=== PATIENT | female | born 1950 | race Caucasian/White ===

== ENCOUNTER → 2016-11-18 07:33 | Day surgery (SDC) | payer MEDICARE, BC ==
[~2016-11-18] VITALS: Ht 154.9 cm; Wt 84.5 kg
--- NOTE | ~2016-11-18 | OP ---
PATIENT NAME: MALINDA PATEL MEDICAL RECORD: [id number] :50 LOCATION:D[facility] ADMISSION DATE: SURGEON: BISMARK HOROWITZ DO DATE OF OPERATION: 11/18/2016 PROCEDURE: EGD with biopsies. INDICATIONS FOR PROCEDURE: Heartburn and occult blood in stools. SCOPE: Olympus video gastroscope. MEDICATIONS: Propofol 175 mg IV per anesthesia. ESTIMATED BLOOD LOSS: Minimal. COMPLICATIONS: None. FINDINGS: Informed consent was given. The patient was made comfortable with the above medication. After reaching an adequate level of sedation by slow IV push, the patient was placed on her left side. The endoscope was then advanced under direct visualization through the mouth to the second portion of the duodenum. The upper, middle, and distal thirds of the esophagus appeared normal. At the GE junction, there was some very mild LA class A, reflux induced esophagitis. The endoscope was advanced into the stomach and retroflexed to view the cardia where a diminutive sliding hiatal hernia was present. There were multiple benign-appearing fundic gland type polyps present in the fundus and body of the stomach. A single polyp was removed confirm this diagnosis. The endoscope was advanced down to the antrum and prepyloric region, which appeared normal. Random biopsies were taken from this area to submit for histology and to rule out H. pylori. The endoscope was advanced into the duodenum where the bulb and second portion of the duodenum appeared normal. The scope was then withdrawn from the patient. The patient tolerated the procedure well and there were no complications. IMPRESSIONS: 1. Reflux esophagitis, grade A. 2. Diminutive sliding hiatal hernia. 3. Benign appearing fundic gland type gastric polyps. PLAN AND RECOMMENDATIONS: 1. Discharge home when recovery parameters are met. 2. Continue current diet. 3. Continue current medications, including omeprazole 20 mg daily for heartburn. 4. Consider colonoscopy regarding the Hemoccult positive stools. TRANSINT:[id number] Voice Confirmation ID: [id number] DOCUMENT ID: [id number] OPERATIVE REPORT [id number] MALINDA PATELBISMARK NAJERA DO CC: [id number] DICTATION DATE: 11/18/16 0845 BLOW PIT HELPER: 11/18/16 1730 [id number] [place] [address]
[~2016-11-18 07:33] MED LIST: ACETAMINOPHEN500 M1 PO; COUMADIN10 MG PO; COUMADIN5 MG PO; COUMADIN7.5 MG PO; FISH OIL 1,0001 CA1 PO; FISH OIL 1,2001 CA1 PO; IBUPROFEN400 MG PO; KLONOPIN1 MG PO; LOVENOX80 MG/0.8 SC; ZESTORETIC 20-1 EACH PO; ZOLOFT100 MG PO
[2016-11-18 08:05] LABS: BASOPHILS 0.2 % (0-2); EOSINOPHILS 1.1 % (0-7); HEMATOCRIT 39.2 % (36.0-48.0); HEMOGLOBIN 13.4 g/dL (12-16); IMMATURE GRANULOCYTES 0.4 % (0-5); LYMPHOCYTES 33.3 % (15-50); MCH 30.3 pg (26.0-34.0); MCHC 34.2 g/dL (31.0-37.0); MCV 88.7 fL (80.0-100.0); MEAN PLATELET VOLUME 9.5 fL (7.4-10.4); MONOCYTES 11.5 % (2-11); NEUTROPHILS 53.5 % (40-80); PLATELET COUNT 217 10x3/uL (130-400); RBC 4.42 10x6/uL (4.00-5.40); RDW 12.9 % (11.5-14.5); WBC 4.5 10x3/uL (4.8-10.8)
[2016-11-18 08:12] VITALS: BP 153/76; Ht 154.9 cm; Wt 84.5 kg
[2016-11-18 08:13] LABS: CALC OSMOLALITY 268 mosm/kg (275-300); CALCIUM 9.2 mg/dL (8.5-10.1); CARBON DIOXIDE 28.6 mmol/L (21.0-32.0); CHLORIDE - SERUM 98 mmol/L (98-107); CREATININE - SERUM 0.7 mg/dL (0.6-1.3); GLUCOSE 111 mg/dL (74-106); POTASSIUM - SERUM 4.1 mmol/L (3.5-5.1); SODIUM 134 mmol/L (136-145); UREA NITROGEN 13 mg/dL (7-18); eGFR NON AFRICAN AMERICAN 89 mL/min (90-120)
[2016-11-18 08:26] LABS: APTT 24.2 SECONDS (22.8-39.4); INR 1.02 (0.85-1.17); PROTIME 13.2 SECONDS (11.6-15.0)
--- NOTE | 2016-11-18 09:56 | NUR ---
0900-RECD FROM GI LAB. ALERT. VODANIA HERE TO REPORT FINDINGS. 09-TAKING LIQUIDS WITHOUT NAUSEA. 919-IV D/C. 929-D/C INSTRUCTIONS REVIEWED. D/C HOME VIA WHEELCHAIR.
== END | disposition home or self-care (01) ==
LOC: D.OPS 07:33
PROVIDERS: Anesthesiology
DX: K21.0 Gastro-esophageal reflux disease with esophagitis (principal); K44.9 Diaphragmatic hernia without obstruction or gangrene; K31.7 Polyp of stomach and duodenum; Z01.812 Encounter for preprocedural laboratory examination